=== PATIENT | male | born 1945 | race Two or more races ===

== ENCOUNTER 2024-02-17 10:20 | Inpatient (IN) | payer OTHER ==
[~2024-02-17] VITALS: Ht 172.7 cm; Wt 68.0 kg
[2024-02-17] MEDS ORDERED: TOPROL XL50 M1 (10:38)
[2024-02-17] MEDS ORDERED: NORVASC5 MG (10:38)
[2024-02-17] MEDS ORDERED: ELIQUIS5 MG (10:38)
[2024-02-17] MEDS ORDERED: PROSCAR5 MG (10:39)
[2024-02-17] MEDS ORDERED: CRESTOR40 MG (10:39)
[2024-02-17] MEDS ORDERED: TIROSINT88 MCG (10:39)
[2024-02-17] MEDS ORDERED: AMIODARONE HCL100 MG (10:39)
--- NOTE | 2024-02-17 10:40 | NUR ---
PACIENTE MASCULINO ALERTA Y ORIENTADO X3, REFIERE QUE SE REALIZA EN [facility] LA PRUEBA DEL COVID EL CUAL FUE POSITIVO. TIENE TOS SECA, DEBILIDAD, DIFICULTAD AL RESPIRAR Y AL MOMENTO SE REALIZAR EL TRIAGE 02 80% SE LE NOTIFICA A EL CUAL VERBALIZA COLOCARLO EN AREA DE CHEST PAIN.
[2024-02-17] MEDS ORDERED: METHYLPREDNISOLONE SOD SUCC 125 MG VIAL IV ONE (10:45)
--- NOTE | 2024-02-17 11:09 | NUR ---
RN BALWINDER RECIBE PTE MASCULINO ALERTA Y ORIENTADO X3 EN UNIDAD DE CHEST PAIN. SE UBICA A PTE EN PATRICK #18 EN CAMA BAJA CON BARANDAS ELEVADAS Y ESPALDAR A 45%. SE CONECTA PTE A MONITOR CARDIACO Y OXIMETRIA DE PULSO CONTINUA. SE PROVEE ASISTENCIA RESPIRATORIA CON VENTURY AL 50%. EXTREMIDADES SUPERIORES LIBRES DE EDEMA Y ERITEMA. ABDOMEN BLANDO AL TACTO CON PERISTALSIS PRESENTE. EXTREMIDADES INFERIORES CON PRESENCIA DE EDEMA.
[2024-02-17 11:17] LABS: HEMATOCRIT 29.8 % (39.0-48.0); HEMOGLOBIN 10.3 g/dL (13-16.00); MEAN CELL VOLUME 85.1 fL (80.0-100.00); MEAN CORPUSCULAR HEMOGLOBIN 29.3 pg (27.00-32.0); MEAN CORPUSCULAR HGB CONC 34.5 g/dl (32.0-36.0); PLATELET COUNT 257 K/uL (150-450); RED CELL DISTRIBUTION WIDTH 15.5 % (11.5-14.5)
[2024-02-17 11:18] LABS: ABG pCO2 26.2 mmHg (35-45)
[2024-02-17 11:19] LABS: ABG PO2 56.4 mmHg (80-100); BASE EXCESS -3.2 mmol/l; BICARBONATE 18.6 mmol/l (23-25); SaO2 90.8 %; Tco2 19.4 mmol/l; allen test SATISFACTORY; o2 21 %; puncture site RADIAL RIGHT
[2024-02-17 11:23] LABS: ERYTHROCYTE SEDIMENTATION RATE > 130 mm/hr
[2024-02-17 11:52] LABS: INR 1.24; PROTHROMBIN TIME 13.3 SECONDS (9.0-11.5)
[2024-02-17 11:53] LABS: PARTIAL THROMBOPLASTIN TIME 40.7 SECONDS (22.0-34.0)
[2024-02-17 12:01] LABS: ALBUMIN 2.8 gm/dL (3.4-5.0); BILIRUBIN TOTAL 0.94 mg/dL (0.3-1.2); CALCIUM 8.7 mg/dL (8.5-10.1); CREATININE SERUM 1.95 mg/dL (0.70-1.30); GFR 33.27; GLOBULINA 5.9 G/DL (2.4-3.5); MAGNESIUM 2.1 mg/dL (1.8-2.4); PHOSPHOROUS 2.8 mg/dL (2.5-4.9); POTASSIUM 3.18 mEq/L (3.5-5.1); TOTAL PROTEIN 8.7 gm/dL (6.4-8.2)
[2024-02-17 12:02] LABS: C-REACTIVE PROTEIN 17.4 MG/DL (0.00-0.29)
[2024-02-17] MEDS ORDERED: CEFTRIAXONE SODIUM 1,000 MG VIAL IV ONE (13:00)
[2024-02-17] MEDS ORDERED: AZITHROMYCIN 500 MG VIAL IV ONE (13:00)
--- NOTE | 2024-02-17 13:53 | NUR ---
SE ADMINISTRAN MEDICAMENTOS [facility] ORDEN MEDICA, NO REACCION ADVERSA AL MOMENTO PACIENTE Y FAMILIAR SON ORIENTADOS POR DR. SEBASTIAN SOBRE CONSULTA CON MEDICINA INTERNA CON DR. CANDI MAIN. AL MOMENTO CONTINUA CON VENTURY MASK AL 50%, RR-28, SAT-94%, HR-60 RITMO MARCAPASO. SE MANTIENE BAJO OBSERVACION POR CAMBIOS SIGNIFICATIVOS.
[2024-02-17 15:00] VITALS: BP 115/51; O2SAT 94
--- NOTE | 2024-02-17 15:22 | NUR ---
SE RECIBE A PACIENTE MASCULINO ALERTA Y ORIENTADO X3 EN AREA DE CHEST PAIN CONECTADO A MONITOR CARDIACO Y OXIMETRIA CONTINUA. AL MOMENTO PACIENTE CON VENTURY MASK AL 50%, TOLERANDO Y SATURANDO 95%. EULALIA SE OBSERVA INTACTA. PACIENTE CON MARCAPASO. CANALIZADO EN RT ARM CON #18 X2, PATENTES, LIBRES DE PROCESO DE INFECCION Y CON H/L. EXTREMIDADES SUPERIORES SE OBSERVAN LIBRES DE EDEMA Y ERITEMA. ABDOMEN NO DISTENDIDO, DEPRESIBLE, ANDREIA DE DOLOR A LA PALPACION Y CON PERISTALSIS PRESENTE. PACIENTE ORINANDO DE FORMA ESPONTANEA HACIENDO USO DE URINAL. EXTREMIDADES INFERIORES SE OBSERVAN CON LEVE EDEMA Y ERITEMA. PACIENTE SE MANTIENE EN CAMA A NIVEL DE PISO JUNTO CON BARRANDAS ELEVADAS. PENDIENTE A CONSULTA MEDICA CON DR. CANDI MAIN DE MEDICINA INTERNA.
[2024-02-17] MEDS ORDERED: DEXAMETHASONE SODIUM PHOSPHATE 4 MG/ML VIAL IV SCH (16:21)
[2024-02-17] MEDS ORDERED: ZINC SULFATE 220 MG CAPSULE PO SCH (16:21)
[2024-02-17] MEDS ORDERED: PANTOPRAZOLE SODIUM 40 MG/VIAL VIAL IV PUSH SCH (16:22)
[2024-02-17] MEDS ORDERED: ONDANSETRON HCL 2 MG/ML VIAL IV PRN (16:30)
[2024-02-17] MEDS ORDERED: SODIUM CHLORIDE 0.45 % 1,000 ML IV SCH (16:30)
[2024-02-17] MEDS ORDERED: hydrALAZINE HCL 20 MG VIAL IV PRN (16:30)
[2024-02-17] MEDS ORDERED: LEVALBUTEROL HCL 0.63 MG/3 ML SOLUTION IH SCH (17:00)
[2024-02-17] MEDS ORDERED: ASCORBIC ACID 500 MG TABLET PO SCH (17:00)
[2024-02-17] MEDS ORDERED: GUAIFENESIN/DEXTROMETHORPHAN 10ML BLIST.PACK PO SCH ×2 (17:00→17:35)
[2024-02-17] MEDS ORDERED: APIXABAN 5 MG TABLET PO SCH ×2 (17:30→21:00)
[2024-02-17 18:56] LABS: ABG PH 7.432 (7.35-7.45); ABG PO2 65.5 mmHg (80-100); ABG pCO2 29.5 mmHg (35-45); BASE EXCESS -3.7 mmol/l; BICARBONATE 19.2 mmol/l (23-25); SaO2 93.1 %; Tco2 20.1 mmol/l
[2024-02-17 18:57] LABS: allen test SATISFACTORY; o2 21 %; puncture site RADIAL RIGHT
[2024-02-17 18:57] LABS: CKMB 4.2 NG/ML (0.5-3.6); FERRITIN 1251.6 NG/ML (26-388)
[2024-02-17 19:35] LABS: D DIMER 0.69 MG/L
[2024-02-17 20:00] VITALS: BP 143/70; O2SAT 95
[2024-02-17] MEDS ORDERED: MELATONIN 5 MG TABLET PO SCH (21:00)
[2024-02-17 22:00] VITALS: BP 127/59; O2SAT 95
[2024-02-17 23:00] VITALS: BP 112/55; O2SAT 94
[2024-02-18 01:50] LABS: RH POSITIVE
[2024-02-18 03:00] VITALS: BP 118/54; O2SAT 93
[2024-02-18 03:37] LABS: CKMB 3.5 NG/ML (0.5-3.6)
[2024-02-18] MEDS ORDERED: LEVOTHYROXINE SODIUM 75 MCG TABLET PO SCH (06:00)
[2024-02-18 06:18] LABS: PH,URINE 5.5 (5.0-8.0); URINE APPEARANCE Clear; URINE BILIRRUBIN Negative (NEGATIVE); URINE BLOOD Large; URINE COLOR Orange; URINE GLUCOSE Negative (NEGATIVE); URINE KETONE Negative (NEGATIVE); URINE LEUKOCYTE Small; URINE NITRATE Negative
[2024-02-18 06:19] LABS: HEMATOCRIT 30.1 % (39.0-48.0); HEMOGLOBIN 10.1 g/dL (13-16.00); MEAN CELL VOLUME 86.8 fL (80.0-100.00); MEAN CORPUSCULAR HEMOGLOBIN 29.2 pg (27.00-32.0); MEAN CORPUSCULAR HGB CONC 33.6 g/dl (32.0-36.0); PLATELET COUNT 266 K/uL (150-450); RED BLOOD COUNT 3.46 M/uL (4.00-6.00); RED CELL DISTRIBUTION WIDTH 15.3 % (11.5-14.5)
[2024-02-18 06:22] LABS: URINE BACTERIA 115.9 uL (0.0-1933); URINE EPITHELIAL CELLS 5.5 uL (0.0-38.8); URINE RBC 4729.2 uL (0.0-20.8); URINE WBC 45.6 uL (0.0-23.2)
[2024-02-18 06:28] LABS: URINE CAST 1.37 uL (0.0-1.40); URINE PROTEIN 100 (NEGATIVE)
[2024-02-18 06:44] LABS: INR 1.15; PROTHROMBIN TIME 12.4 SECONDS (9.0-11.5)
[2024-02-18 06:47] LABS: ERYTHROCYTE SEDIMENTATION RATE > 130 mm/hr
[2024-02-18 07:13] LABS: ALBUMIN 2.4 gm/dL (3.4-5.0); BILIRUBIN TOTAL 0.6 mg/dL (0.3-1.2); CALCIUM 8.5 mg/dL (8.5-10.1); CHOL HDL RATIO 4.2 (0-5.0); CREATININE SERUM 1.76 mg/dL (0.70-1.30); GFR 37.44; GLOBULINA 5.8 G/DL (2.4-3.5); MAGNESIUM 2.2 mg/dL (1.8-2.4); POTASSIUM 3.21 mEq/L (3.5-5.1); PROSTATIC SPECIFIC ANTIGEN 1.25 NG/ML (0.010-4.00); TOTAL PROTEIN 8.2 gm/dL (6.4-8.2)
[2024-02-18 07:14] LABS: C-REACTIVE PROTEIN 21.3 MG/DL (0.00-0.29); T4 FREE 1.73 NG/ML (0.76-1.46); TSH 0.273 uIU/mL (0.358-3.74)
[2024-02-18] MEDS ORDERED: 0.9 % SODIUM CHLORIDE 1,000 ML IV SCH (07:15)
[2024-02-18] MEDS ORDERED: POTASSIUM CHLORIDE IN WATER 100 ML IV SCH (08:00)
[2024-02-18] MEDS ORDERED: METOPROLOL SUCCINATE 100 MG TAB.SR.24H PO SCH (09:00)
[2024-02-18] MEDS ORDERED: AMIODARONE HCL 200 MG TABLET PO SCH (09:00)
[2024-02-18 09:56] LABS: CKMB 3.6 NG/ML (0.5-3.6)
[2024-02-18 10:28] VITALS: BP 125/83; O2SAT 98
[2024-02-18 15:10] VITALS: BP 112/57; O2SAT 96
[2024-02-18] MEDS ORDERED: CEFTRIAXONE SODIUM 2,000 MG VIAL IV SCH (17:00)
[2024-02-18 17:19] VITALS: BP 137/58; O2SAT 95
[2024-02-18] MEDS ORDERED: AZITHROMYCIN 500 MG VIAL IV NR (17:45)
[2024-02-18 19:33] VITALS: BP 131/57; O2SAT 100
[2024-02-18] MEDS ORDERED: ALBUTEROL SULFATE 8.5 GM HFA.AER.AD IH SCH (20:33)
[2024-02-18 23:10] VITALS: BP 139/58; O2SAT 100
[2024-02-19] VITALS (12 sets, daily range): BP systolic 63–147; BP diastolic 35–63; O2SAT 69–98
[2024-02-19 06:56] LABS: MAGNESIUM 2.4 mg/dL (1.8-2.4); PHOSPHOROUS 2.8 mg/dL (2.5-4.9)
[2024-02-19 06:59] LABS: ALBUMIN 2.5 gm/dL (3.4-5.0); BILIRUBIN TOTAL 0.54 mg/dL (0.3-1.2); C-REACTIVE PROTEIN 14.5 MG/DL (0.00-0.29); CALCIUM 8.5 mg/dL (8.5-10.1); CREATININE SERUM 1.79 mg/dL (0.70-1.30); FERRITIN 1039.8 NG/ML (26-388); GFR 36.72; POTASSIUM 3.89 mEq/L (3.5-5.1); TOTAL PROTEIN 8.5 gm/dL (6.4-8.2)
[2024-02-19 07:03] LABS: HEMATOCRIT 30.9 % (39.0-48.0); HEMOGLOBIN 10.4 g/dL (13-16.00); MEAN CORPUSCULAR HEMOGLOBIN 29.2 pg (27.00-32.0); MEAN CORPUSCULAR HGB CONC 33.5 g/dl (32.0-36.0); PLATELET COUNT 402 K/uL (150-450); RED BLOOD COUNT 3.56 M/uL (4.00-6.00); RED CELL DISTRIBUTION WIDTH 15.5 % (11.5-14.5)
[2024-02-19] MEDS ORDERED: QUETIAPINE FUMARATE 50 MG TABLET PO STA (08:42)
[2024-02-19 08:46] LABS: MYCOPLASMA PNEUMONIAE IGM NON REACTIVE (NO REACTIVE)
[2024-02-19] MEDS ORDERED: LACTOBACILLUS ACIDOPHILUS 1 CAP CAP PO SCH (09:00)
[2024-02-19 11:59] LABS: ABG PH 7.452 (7.35-7.45); ABG PO2 64.2 mmHg (80-100); ABG pCO2 25.2 mmHg (35-45); BASE EXCESS -4.8 mmol/l; BICARBONATE 17.2 mmol/l (23-25)
[2024-02-19 12:00] LABS: allen test SATISFACTORY; o2 100 %; puncture site RADIAL RIGHT
[2024-02-19] MEDS ORDERED: SULFAMETHOXAZOLE/TRIMETHOPRIM 16 MG/ML 10ML VIAL IV SCH (13:00)
[2024-02-19] MEDS ORDERED: POLYVINYL ALCOHOL 15 ML DROPS OP SCH (17:00)
[2024-02-19] MEDS ORDERED: AZITHROMYCIN 2 MG/ML REDILUIDO IV SCH (17:00)
[2024-02-19] MEDS ORDERED: AZITHROMYCIN 250 MG in 0.9 % SODIUM CHLORIDE 250 ML IV SCH (17:00)
[2024-02-19] MEDS ORDERED: BARICITINIB PO SCH (17:00)
[2024-02-19] MEDS ORDERED: CHLORHEXIDINE GLUCONATE 15ML BRUSH KIT MM SCH (17:58)
[2024-02-19] MEDS ORDERED: MIDAZOLAM HCL 100 MG in 0.9 % SODIUM CHLORIDE 100 ML IV SCH (18:45)
[2024-02-19] MEDS ORDERED: 0.9 % SODIUM CHLORIDE 500 ML IV ONE ×2 (19:45→20:15)
[2024-02-19] MEDS ORDERED: MIDAZOLAM HCL 2 MG/2 ML VIAL IV PUSH ONE (20:15)
[2024-02-19] MEDS ORDERED: SODIUM BICARBONATE 100 MEQ in DEXTROSE 5 % IN WATER 1,000 ML IV SCH (20:15)
[2024-02-19] MEDS ORDERED: NOREPINEPHRINE BITARTRATE 4 MG in DEXTROSE 5 % IN WATER 250 ML IV SCH (20:45)
[2024-02-19 20:51] LABS: ABG PO2 62.2 mmHg (80-100); ABG pCO2 42.9 mmHg (35-45); BASE EXCESS -9.6 mmol/l; BICARBONATE 17.6 mmol/l (23-25); SaO2 85.2 %; Tco2 18.9 mmol/l; allen test SATISFACTORY; o2 100 %; puncture site RADIAL LEFT
[2024-02-19] MEDS ORDERED: APIXABAN 5 MG TABLET PO SCH (21:00)
[2024-02-19] MEDS ORDERED: CEFEPIME HCL 2,000 MG VIAL IV SCH (21:00)
[2024-02-19 21:01] LABS: HEMATOCRIT 28.7 % (39.0-48.0); HEMOGLOBIN 9.2 g/dL (13-16.00); MEAN CELL VOLUME 87.7 fL (80.0-100.00); MEAN CORPUSCULAR HEMOGLOBIN 28.1 pg (27.00-32.0); MEAN CORPUSCULAR HGB CONC 32.1 g/dl (32.0-36.0); PLATELET COUNT 379 K/uL (150-450); RED BLOOD COUNT 3.27 M/uL (4.00-6.00)
[2024-02-19] MEDS ORDERED: PHENYLEPHRINE HCL 20 MG in 0.9 % SODIUM CHLORIDE 250 ML IV SCH (21:30)
[2024-02-19] MEDS ORDERED: EPINEPHRINE HCL/PF 4 MG in DEXTROSE 5 % IN WATER 250 ML IV SCH (22:15)
[2024-02-19 22:49] LABS: ALBUMIN 2.1 gm/dL (3.4-5.0); BILIRUBIN TOTAL 0.48 mg/dL (0.3-1.2); CALCIUM 7.7 mg/dL (8.5-10.1); CREATININE SERUM 2.63 mg/dL (0.70-1.30); GFR 23.55; GLOBULINA 4.6 G/DL (2.4-3.5); MAGNESIUM 2.4 mg/dL (1.8-2.4); PHOSPHOROUS 5.9 mg/dL (2.5-4.9); POTASSIUM 5.05 mEq/L (3.5-5.1); TOTAL PROTEIN 6.7 gm/dL (6.4-8.2)
[2024-02-20] MEDS ORDERED: ATROPINE SULFATE 0.1 MG/ML DISP.SYRIN IV ONE (00:20)
[2024-02-20] MEDS ORDERED: EPINEphrine 10 ML DISP.SYRIN IV SCH (00:20)
[2024-02-20] MEDS ORDERED: SODIUM BICARBONATE 1 MEQ/ML DISP.SYRIN 50ML IV STA (05:55)
== END 2024-02-20 00:45 | disposition expired | DRG 177 ==
LOC: ER 10:22 → ICU-2 17:42 → ICU 02-19 17:13
PROVIDERS: General Practice; Internal Medicine; Internal Medicine Infectious Disease; Internal Medicine Nephrology; ADMIT Internal Medicine; ATTEND Internal Medicine
PROC: BB24ZZZ Computerized Tomography (CT Scan) of Bilateral Lungs (ICD-10-PCS; principal; 2024-02-17)
PROC: B346ZZZ Ultrasonography of Right Internal Carotid Artery (ICD-10-PCS; 2024-02-17)
PROC: 3E0F7GC Introduction of Other Therapeutic Substance into Respiratory Tract, Via Natural or Artificial Opening (ICD-10-PCS; 2024-02-17)
PROC: 02HV33Z Insertion of Infusion Device into Superior Vena Cava, Percutaneous Approach (ICD-10-PCS; 2024-02-18)
PROC: 5A0935A Assistance with Respiratory Ventilation, Less than 24 Consecutive Hours, High Flow/Velocity Cannula (ICD-10-PCS; 2024-02-18)
DX: U07.1 COVID-19 (principal); I21.4 Non-ST elevation (NSTEMI) myocardial infarction; J12.82 Pneumonia due to coronavirus disease 2019; N17.8 Other acute kidney failure; E87.1 Hypo-osmolality and hyponatremia; R09.02 Hypoxemia; I48.91 Unspecified atrial fibrillation; I12.9 Hypertensive chronic kidney disease with stage 1 through stage 4 chronic kidney disease, or unspecified chronic kidney disease; N18.9 Chronic kidney disease, unspecified; E03.8 Other specified hypothyroidism; K29.50 Unspecified chronic gastritis without bleeding; I11.0 Hypertensive heart disease with heart failure; I46.9 Cardiac arrest, cause unspecified; I50.9 Heart failure, unspecified; Z95.0 Presence of cardiac pacemaker; R00.1 Bradycardia, unspecified; K29.70 Gastritis, unspecified, without bleeding